=== PATIENT | female | born 2000 | race Asian ===

== ENCOUNTER 2024-12-10 22:24 | Emergency (ER) | payer OTHER, MEDICAID | END 2024-12-10 23:52 | disposition left against medical advice (07) | LOC: ER 23:23 | DX: S61.419A Laceration without foreign body of unspecified hand, initial encounter (principal); Z53.21 Procedure and treatment not carried out due to patient leaving prior to being seen by health care provider; W45.8XXA Other foreign body or object entering through skin, initial encounter; Y93.89 Activity, other specified; Y92.89 Other specified places as the place of occurrence of the external cause; Y99.8 Other external cause status ==